=== PATIENT | female | born 2000 | race Caucasian/White ===

== ENCOUNTER 2021-06-10 17:33 | Inpatient (IN) | payer SELFPAY ==
[~2021-06-10] VITALS: Ht 182.9 cm; Wt 117.9 kg
[2021-06-10] MEDS ORDERED: MAGNESIUM/ALUMINUM HYDROXIDE/SIMETHICONE 30ML UDC PO STA (18:10)
[2021-06-10] MEDS ORDERED: ONDANSETRON 4MG ODT PO STA (18:10)
[2021-06-10] MEDS ORDERED: FAMOTIDINE 20MG TABLET PO ONE (18:15)
[2021-06-10 18:57] LABS: CLARITY URINE CLEAR (CLEAR); COLOR URINE YELLOW (YELLOW); KETONES URINE NEGATIVE (NEGATIVE); LEUKOCYTE ESTERASE URINE 1+ (NEGATIVE); NITRITE URINE NEGATIVE (NEGATIVE); OCCULT BLOOD URINE NEGATIVE (NEGATIVE); PH URINE 7.5 (4.5-8.0); PROTEIN URINE NEGATIVE (NEGATIVE); UROBILINOGEN URINE 0.2 E.U./dL (0.2-1.0)
[2021-06-10 19:28] LABS: BASOPHILS % 0.2 % (0.0-2.0); EOSINOPHILS % 0.4 % (0.0-5.0); HEMATOCRIT. 35.5 % (36.0-48.0); HEMOGLOBIN. 12.5 g/dL (12.0-16.0); LYMPHOCYTES % 17.3 % (20.0-50.0); MEAN CORPUSCULAR VOLUME 82.1 fL (81.0-99.0); MEAN PLATELET VOLUME 8.4 fl (7.4-10.4); MONOCYTES % 4.3 % (2.0-8.0); NEUTROPHILS % 77.8 % (40.0-76.0); PLATELET 339 x1000/uL (130-400); RED BLOOD CELL COUNT 4.33 mill/uL (4.2-5.4); RED CELL DISTRIBUTION WIDTH 14.3 % (11.6-14.6)
[2021-06-10 19:32] LABS: CHLORIDE 106 mEq/L (98-107)
[2021-06-10] MEDS ORDERED: HYDROCODONE/ACETAMINOPHEN 5/325MG TABLET PO ONE (20:30)
[2021-06-10] MEDS ORDERED: MORPHINE SULFATE 4 MG/ML CPJ (NOT FOR IM USE) IV STA (21:08)
[2021-06-10] MEDS ORDERED: ONDANSETRON HCL 4MG/2ML INJ IV STA (21:08)
[2021-06-10] MEDS ORDERED: SODIUM CHLORIDE 0.9% 1,000 ML IV ONE (21:15)
[2021-06-11] MEDS ORDERED: ONDANSETRON HCL 4MG/2ML INJ IV PRN
[2021-06-11] MEDS ORDERED: ENOXAPARIN 40MG/0.4ML SYR SUBCUT SCH
[2021-06-11] MEDS ORDERED: IPRATROPIUM/ALBUTEROL 0.5-3(2.5)MG/3ML NEB NEB PRN
[2021-06-11] MEDS ORDERED: CLONIDINE 0.1MG TABLET PO PRN
[2021-06-11] MEDS ORDERED: ACETAMINOPHEN 325MG TABLET PO PRN
[2021-06-11] MEDS ORDERED: DOCUSATE SODIUM 100MG CAPSULE PO PRN
[2021-06-11] MEDS ORDERED: MAGNESIUM/ALUMINUM HYDROXIDE/SIMETHICONE 30ML UDC PO PRN
[2021-06-11] MEDS ORDERED: KETOROLAC 30MG/ML VIAL IV PRN
[2021-06-11] MEDS: SODIUM CHLORIDE 0.9% 1,000 ML IV SCH ×3 (00:15→11:18)
[2021-06-11 01:00] VITALS: BP 106/53
[2021-06-11 04:00] VITALS: BP 106/53
[2021-06-11 07:34] LABS: BASOPHILS % 0.5 % (0.0-2.0); EOSINOPHILS % 0.5 % (0.0-5.0); HEMATOCRIT. 33.6 % (36.0-48.0); HEMOGLOBIN. 11.3 g/dL (12.0-16.0); LYMPHOCYTES % 26.2 % (20.0-50.0); MEAN CORPUSCULAR HEMOGLOBIN 28.2 pg (28.0-32.0); MEAN CORPUSCULAR VOLUME 83.9 fL (81.0-99.0); MONOCYTES % 8.6 % (2.0-8.0); NEUTROPHILS % 64.2 % (40.0-76.0); PLATELET 279 x1000/uL (130-400); RED CELL DISTRIBUTION WIDTH 13.9 % (11.6-14.6)
[2021-06-11 08:00] VITALS: BP 104/55
[2021-06-11 08:09] LABS: CHLORIDE 111 mEq/L (98-107)
[2021-06-11 08:19] LABS: LDL CHOLESTEROL 106 mg/dL (5-100)
[2021-06-11 08:20] LABS: CREATINE KINASE 55 IU/L (26-192)
[2021-06-11 08:21] LABS: HDL CHOLESTEROL 38 mg/dL (40-59)
[2021-06-11 08:25] LABS: CREATINE KINASE MB FRACTION 1.9 ng/mL (0.5-3.6)
[2021-06-11] MEDS: ENOXAPARIN 30MG/0.3ML SYR SUBCUT SCH ×2 (11:17→20:59)
[2021-06-11 12:00] VITALS: BP 94/49
[2021-06-11 16:00] VITALS: BP 99/52
[2021-06-11 16:24] LABS: CREATINE KINASE 48 IU/L (26-192)
[2021-06-11 16:25] LABS: CREATINE KINASE MB FRACTION < 1.0 ng/mL (0.5-3.6)
[2021-06-11 20:00] VITALS: BP 100/55
[2021-06-12] MEDS: SODIUM CHLORIDE 0.9% 1,000 ML IV SCH (00:16)
[2021-06-12 04:00] VITALS: BP 110/56
[2021-06-12] MEDS: HYDROCODONE/ACETAMINOPHEN 5/325MG TABLET PO PRN ×2 (04:19→09:33)
[2021-06-12 08:00] VITALS: BP 99/54
[2021-06-12] MEDS: ENOXAPARIN 30MG/0.3ML SYR SUBCUT SCH (09:33)
[2021-06-12 17:05] VITALS: BP 101/54
== END 2021-06-12 18:15 | disposition home or self-care (01) ==
LOC: ER 18:21 → 6EST 22:49 → ENRESERV 23:06
PROVIDERS: ADMIT Internal Medicine; ATTEND Internal Medicine
DX: K80.00 Calculus of gallbladder with acute cholecystitis without obstruction (principal); Z20.822 Contact with and (suspected) exposure to COVID-19
CPT/HCPCS: 36415; 71045; 74176; 76700; 80053; 80061; 81003; 82550; 82553; 84443; 84484; 85025; 87426; 93005; 99285; J1650; J2270; J2405; J7030; Q0162